=== PATIENT | male | born 1995 | race Caucasian/White ===

== ENCOUNTER 2024-09-25 10:58 | Emergency (ER) | payer OTHER ==
[~2024-09-25] VITALS: Ht 172.7 cm; Wt 69.8 kg
[2024-09-25 10:59] VITALS: TEMP 97.7
[2024-09-25 12:09] LABS: KETONE, URINE AUTO RFX NEGATIVE (NEGATIVE); LEUKOCYTE ESTERASE UR AUTO RFX NEGATIVE (NEGATIVE); MUCUS, URINE RFX SMALL (NEGATIVE); NITRITE, URINE AUTO RFX NEGATIVE (NEGATIVE); RBC, URINE AUTO RFX 0 /HPF (0-3); SQUAM EPITHELIAL CELL UR AURFX 0 /HPF (0-6); WBC, URINE AUTO RFX 2 /HPF (0-3)
[2024-09-25] MEDS ORDERED: PRED10TA2 PO (14:24)
[2024-09-25 14:52] VITALS: BP 108/72; O2SAT 97
== END 2024-09-25 14:53 | disposition home or self-care (01) ==
LOC: M ED 10:58
DX: M54.50 Low back pain, unspecified (principal); Z79.52 Long term (current) use of systemic steroids; R33.9 Retention of urine, unspecified